=== PATIENT | male | born 1980 | race African-American/Black ===

== ENCOUNTER 2017-06-16 18:45 | Emergency (ER) | payer OTHER ==
[~2017-06-16] VITALS: Ht 172.7 cm; Wt 60.0 kg
[2017-06-16 18:52] VITALS: BP 146/98
== END 2017-06-16 21:46 | disposition left against medical advice (07) ==
LOC: ER 20:38
DX: T14.8 Other injury of unspecified body region (principal); Z53.21 Procedure and treatment not carried out due to patient leaving prior to being seen by health care provider

== ENCOUNTER 2017-06-17 13:14 | Emergency (ER) | payer OTHER ==
[~2017-06-17] VITALS: Ht 167.6 cm; Wt 61.0 kg
[2017-06-17] MEDS ORDERED: IBUPROFEN 600MG TABLET PO ONE (15:15)
[2017-06-17 15:53] VITALS: BP 121/64
[2017-06-17] MEDS ORDERED: CEFAZOLIN 1000MG PREMIX 50 ML IV ONE (17:15)
[2017-06-17] MEDS ORDERED: BACITRACIN ZINC OINT UDPKT TOP ONE (17:15)
== END 2017-06-17 19:57 | disposition home or self-care (01) ==
LOC: ER 13:14
DX: S62.646B Nondisplaced fracture of proximal phalanx of right little finger, initial encounter for open fracture (principal); V29.88XA Motorcycle rider (driver) (passenger) injured in other specified transport accidents, initial encounter; Y93.55 Activity, bike riding; Y92.89 Other specified places as the place of occurrence of the external cause; Y99.8 Other external cause status
CPT/HCPCS: 29130; 73130; 96365; 96366; 99285; J0690; Z7610; 99284